=== PATIENT | male | born 1940 | race Caucasian/White ===

== ENCOUNTER 2016-10-24 21:33 | Emergency (ER) | payer MEDICARE, OTHER ==
[2016-10-24 22:07] LABS: BASO % 0.2 % (0.2-1.2); EOS # 0.1 10_X3_uL (0.0-0.5); EOS % 0.5 % (0.8-7.0); GRAN % 85.9 % (34.0-67.9); HEMATOCRIT 46.2 % (40-51); HEMOGLOBIN 15.8 g/dL (13.7-17.5); LYMPH # 0.6 10_X3_uL (1.3-3.6); LYMPH % 6.7 % (21.8-53.1); MEAN CORPUSCULAR HEMOGLOBIN 29.8 pg (27.0-33.0); MEAN CORPUSCULAR HGB CONC 34.2 g/dL (32.0-36.0); MEAN CORPUSCULAR VOLUME 87.2 fL (79-92); MEAN PLATELET VOLUME 11.5 fl (7.5-11.5); MONO # 0.6 10_X3_uL (0.3-0.8); MONO % 6.7 % (5.3-12.2); PLATELET COUNT 207 x10_3/uL (163-337); RED CELL DISTRIBUTION WIDTH 13.9 % (11.6-14.4); WHITE BLOOD COUNT 9.4 x10_3/uL (4.2-9.1)
[2016-10-24 22:19] LABS: PARTIAL THROMBOPLASTIN TIME 22.3 SECONDS (21.3-29.3); PROTHROMBIN TIME (PATIENT) 10.5 SECONDS (9.9-11.1)
[2016-10-24 22:24] LABS: ALBUMIN 4.2 gm/dL (3.4-5.0); ALKALINE PHOSPHATASE 216 U/L (50-136); BILIRUBIN,TOTAL 1.26 mg/dL (0.0-1.0); BLOOD UREA NITROGEN 21 mg/dL (7-18); CALCIUM 9.3 mg/dL (8.7-10.7); CARBON DIOXIDE 24 mmol/L (21-32); CREATINE KINASE 292 U/L (35-232); CREATININE 0.9 mg/dL (0.6-1.3); GLUCOSE,RANDOM 143 mg/dL (70-99); POTASSIUM 4.2 mmol/L (3.5-5.1); SODIUM 138 mmol/L (136-145); TOTAL PROTEIN 7.1 gm/dL (6.4-8.2)
[2016-10-24 22:52] LABS: AST/SGOT 1624 U/L (6.66-35.34)
[2016-10-24 22:53] LABS: ALT/SGPT 1503 U/L (7.53-40.17)
[2016-10-30 03:09] LABS: HBS AG SCREEN Non Reactive (NR); HCV Non Reactive (NR)
== END 2016-10-25 03:20 | disposition short-term general hospital (02) ==
LOC: ER 21:33
PROVIDERS: Emergency Medicine
DX: I63.9 Cerebral infarction, unspecified (principal); K76.9 Liver disease, unspecified; G81.91 Hemiplegia, unspecified affecting right dominant side; Z86.73 Personal history of transient ischemic attack (TIA), and cerebral infarction without residual deficits; E78.5 Hyperlipidemia, unspecified; I10 Essential (primary) hypertension; Z98.890 Other specified postprocedural states; Z79.02 Long term (current) use of antithrombotics/antiplatelets; Z79.899 Other long term (current) drug therapy
CPT/HCPCS: 36415; 70450; 71250; 80053; 80074; 82140; 82550; 82553; 83880; 85025; 85610; 85730; 87400; 93005; 99070; 99284; 99285-25; G0480

== ENCOUNTER 2016-10-31 16:38 | Inpatient (IN) | payer MEDICARE ==
[~2016-10-31] VITALS: Ht 175.3 cm; Wt 107.0 kg
[2016-10-31 19:09] LABS: URINE BILIRUBIN NEGATIVE (NEGATIVE); URINE BLOOD NEGATIVE (NEGATIVE); URINE GLUCOSE (UA) NORMAL (NORMAL); URINE KETONE NEGATIVE (NEGATIVE); URINE LEUKOCYTE ESTERASE TRACE (NEGATIVE); URINE NITRATE NEGATIVE (NEGATIVE); URINE PROTEIN NEGATIVE (NEGATIVE); UROBILINOGEN NORMAL mg/dL (<1.0)
[2016-10-31 21:56] LABS: URINE BACTERIA 1+ (NONE SEEN); URINE RBC 0-5 /[HPF] (0-2)
[2016-11-01 07:14] LABS: HEMATOCRIT 44.1 % (40-51); HEMOGLOBIN 14.4 g/dL (13.7-17.5); MEAN CORPUSCULAR HEMOGLOBIN 29.2 pg (27.0-33.0); MEAN CORPUSCULAR HGB CONC 32.7 g/dL (32.0-36.0); MEAN CORPUSCULAR VOLUME 89.5 fL (79-92); MEAN PLATELET VOLUME 11.2 fl (7.5-11.5); RED BLOOD COUNT 4.93 x10_6/uL (4.6-6.1); RED CELL DISTRIBUTION WIDTH 13.5 % (11.6-14.4); WHITE BLOOD COUNT 7.9 x10_3/uL (4.2-9.1)
[2016-11-01 07:38] LABS: ALBUMIN 3.7 gm/dL (3.4-5.0); ALKALINE PHOSPHATASE 114 U/L (50-136); ALT/SGPT 96 U/L (7.53-40.17); AST/SGOT 22 U/L (6.66-35.34); BILIRUBIN,TOTAL 0.51 mg/dL (0.0-1.0); BLOOD UREA NITROGEN 22 mg/dL (7-18); CALCIUM 9.1 mg/dL (8.7-10.7); CARBON DIOXIDE 29 mmol/L (21-32); GLUCOSE,RANDOM 99 mg/dL (70-99); POTASSIUM 4.3 mmol/L (3.5-5.1); SODIUM 142 mmol/L (136-145); TOTAL PROTEIN 6.6 gm/dL (6.4-8.2)
[2016-11-02 07:09] LABS: HEMATOCRIT 45.1 % (40-51); HEMOGLOBIN 14.8 g/dL (13.7-17.5); MEAN CORPUSCULAR HGB CONC 32.8 g/dL (32.0-36.0); MEAN CORPUSCULAR VOLUME 88.3 fL (79-92); RED BLOOD COUNT 5.11 x10_6/uL (4.6-6.1); RED CELL DISTRIBUTION WIDTH 13.8 % (11.6-14.4)
[2016-11-02 07:31] LABS: BLOOD UREA NITROGEN 22 mg/dL (7-18); CALCIUM 9.1 mg/dL (8.7-10.7); CARBON DIOXIDE 27 mmol/L (21-32); CREATININE 0.9 mg/dL (0.6-1.3); GLUCOSE,RANDOM 99 mg/dL (70-99); POTASSIUM 4.1 mmol/L (3.5-5.1); SODIUM 140 mmol/L (136-145)
[2016-11-06 06:30] LABS: BLOOD UREA NITROGEN 24 mg/dL (7-18); CALCIUM 8.5 mg/dL (8.7-10.7); CARBON DIOXIDE 23 mmol/L (21-32); CREATININE 1.2 mg/dL (0.6-1.3); GLUCOSE,RANDOM 95 mg/dL (70-99); POTASSIUM 4.2 mmol/L (3.5-5.1); SODIUM 142 mmol/L (136-145)
[2016-11-06 06:54] LABS: HEMATOCRIT 44.2 % (40-51); HEMOGLOBIN 14.5 g/dL (13.7-17.5); MEAN CORPUSCULAR HGB CONC 32.8 g/dL (32.0-36.0); MEAN CORPUSCULAR VOLUME 88.4 fL (79-92); MEAN PLATELET VOLUME 11.1 fl (7.5-11.5); RED CELL DISTRIBUTION WIDTH 13.7 % (11.6-14.4)
[2016-11-09 07:10] LABS: HEMATOCRIT 44.7 % (40-51); HEMOGLOBIN 14.6 g/dL (13.7-17.5); MEAN CORPUSCULAR HGB CONC 32.7 g/dL (32.0-36.0); MEAN CORPUSCULAR VOLUME 88.9 fL (79-92); MEAN PLATELET VOLUME 10.9 fl (7.5-11.5); RED BLOOD COUNT 5.03 x10_6/uL (4.6-6.1); RED CELL DISTRIBUTION WIDTH 13.6 % (11.6-14.4); WHITE BLOOD COUNT 7.9 x10_3/uL (4.2-9.1)
[2016-11-09 07:22] LABS: BLOOD UREA NITROGEN 20 mg/dL (7-18); CALCIUM 8.8 mg/dL (8.7-10.7); CARBON DIOXIDE 28 mmol/L (21-32); CREATININE 1.2 mg/dL (0.6-1.3); GLUCOSE,RANDOM 98 mg/dL (70-99); POTASSIUM 4.4 mmol/L (3.5-5.1); SODIUM 140 mmol/L (136-145)
[2016-11-13 07:08] LABS: HEMATOCRIT 45.3 % (40-51); HEMOGLOBIN 14.9 g/dL (13.7-17.5); MEAN CORPUSCULAR HEMOGLOBIN 29.1 pg (27.0-33.0); MEAN CORPUSCULAR HGB CONC 32.9 g/dL (32.0-36.0); MEAN CORPUSCULAR VOLUME 88.5 fL (79-92); MEAN PLATELET VOLUME 10.9 fl (7.5-11.5); RED BLOOD COUNT 5.12 x10_6/uL (4.6-6.1); RED CELL DISTRIBUTION WIDTH 13.8 % (11.6-14.4); WHITE BLOOD COUNT 9.3 x10_3/uL (4.2-9.1)
[2016-11-13 07:21] LABS: CALCIUM 8.8 mg/dL (8.7-10.7); CREATININE 1.5 mg/dL (0.6-1.3); POTASSIUM 4.2 mmol/L (3.5-5.1)
[2016-11-14 12:19] LABS: BLOOD UREA NITROGEN 25 mg/dL (7-18); CALCIUM 8.7 mg/dL (8.7-10.7); CARBON DIOXIDE 26 mmol/L (21-32); CREATININE 1.2 mg/dL (0.6-1.3); GLUCOSE,RANDOM 107 mg/dL (70-99); POTASSIUM 4.3 mmol/L (3.5-5.1); SODIUM 138 mmol/L (136-145)
[2016-11-16 07:05] LABS: HEMATOCRIT 43.8 % (40-51); HEMOGLOBIN 14.5 g/dL (13.7-17.5); MEAN CORPUSCULAR HEMOGLOBIN 28.8 pg (27.0-33.0); MEAN CORPUSCULAR HGB CONC 33.1 g/dL (32.0-36.0); MEAN CORPUSCULAR VOLUME 87.1 fL (79-92); MEAN PLATELET VOLUME 10.7 fl (7.5-11.5); RED BLOOD COUNT 5.03 x10_6/uL (4.6-6.1); RED CELL DISTRIBUTION WIDTH 13.6 % (11.6-14.4); WHITE BLOOD COUNT 7.8 x10_3/uL (4.2-9.1)
[2016-11-16 07:20] LABS: BLOOD UREA NITROGEN 24 mg/dL (7-18); CALCIUM 8.7 mg/dL (8.7-10.7); CARBON DIOXIDE 25 mmol/L (21-32); CREATININE 1.1 mg/dL (0.6-1.3); GLUCOSE,RANDOM 105 mg/dL (70-99); POTASSIUM 3.7 mmol/L (3.5-5.1); SODIUM 138 mmol/L (136-145)
== END 2016-11-16 10:00 | disposition home or self-care (01) | DRG 558 ==
LOC: SWING 16:38
PROVIDERS: Family Medicine; ADMIT Family Medicine
DX: M62.50 Muscle wasting and atrophy, not elsewhere classified, unspecified site (principal); I69.351 Hemiplegia and hemiparesis following cerebral infarction affecting right dominant side; N39.0 Urinary tract infection, site not specified; K75.89 Other specified inflammatory liver diseases; K71.6 Toxic liver disease with hepatitis, not elsewhere classified; T36.0X5D Adverse effect of penicillins, subsequent encounter; B96.4 Proteus (mirabilis) (morganii) as the cause of diseases classified elsewhere; I10 Essential (primary) hypertension; Z79.02 Long term (current) use of antithrombotics/antiplatelets; Z79.82 Long term (current) use of aspirin; Z79.899 Other long term (current) drug therapy; Z79.1 Long term (current) use of non-steroidal anti-inflammatories (NSAID); Z80.9 Family history of malignant neoplasm, unspecified; Z83.3 Family history of diabetes mellitus; Z82.49 Family history of ischemic heart disease and other diseases of the circulatory system; Z83.6 Family history of other diseases of the respiratory system
CPT/HCPCS: 36415; 80048; 80053; 81001; 87070; 87086; 87186; 97110; 97116; 97530